=== PATIENT | male | born 1950 ===

== ENCOUNTER → 2023-08-21 06:35 | Day surgery (SDC) | payer MEDICARE, OTHER, SELFPAY | LOC: GI 06:35 | PROVIDERS: ATTENDING PHYSICIAN Internal Medicine Gastroenterology | DX: Z12.11 Encounter for screening for malignant neoplasm of colon (principal); D12.3 Benign neoplasm of transverse colon; K57.30 Diverticulosis of large intestine without perforation or abscess without bleeding; K62.1 Rectal polyp; Z86.010 Personal history of colon polyps; Z80.0 Family history of malignant neoplasm of digestive organs | CPT/HCPCS: 45385; 88305 ==

== ENCOUNTER 2024-11-25 01:56 | Emergency (ER) | payer MEDICARE, OTHER, SELFPAY ==
[2024-11-25 01:58] VITALS: BP 210/82
[2024-11-25 04:42] VITALS: BP 154/126
[2024-11-25 04:46] VITALS: BMI 25.6
[2024-11-25 05:00] VITALS: BP 160/71
[2024-11-25 06:00] VITALS: BP 152/77
--- NOTE | 2024-11-25 06:14 | ED.GENMED ---
History of Present Illness
General
Chief Complaint: Musculo-Skeletal Complaint
Source: patient
Exam Limitations: none
Time Seen by Provider: 11/25/24 06:12
Nursing documentation reviewed up to this point in time: agreed with
History of Present Illness
History of Present Illness:
Patient is a 74 old male with history of PVCs followed by mapping specialist in [place], [place] who presents to the ER for evaluation. Patient reports a week ago he fell walking down a step into his living room and missed the step. He landed on
his left side on the rug. He reports pain was improving but over the past several days has had increasing left anterior lower rib pain. He complained of increased pain with deep breath which was worsening which is what prompted him to come to the
ER. He however did not take anything for pain. He is not on blood thinners. He denies any other injuries. He denies any abdominal pain nausea vomiting back pain
Phy Exam
General Physical Exam
General Presentation: no apparent distress
General age: appears stated age
General Skin: warm and dry
General Habitus: normal
General Mental: alert
General Hydration: appears well hydrated
Cardiovascular Exam
Cardiovascular Exam: regular rate/rhythm, no murmur and normal peripheral pulses
Pulmonary Exam
Pulmonary Exam: lungs clear, no respiratory distress and other (Normal inspection of chest tender to the anterior left lower rib no crepitus ecchymosis or abrasion noted)
Gastrointestinal Exam
Gastrointestinal Exam: soft and other (No abdominal tenderness)
Neurological Exam
Neurological Exam: alert and oriented x3
Musculoskeletal Exam
Musculoskeletal Exam: full ROM
Skin Exam
Skin Exam: normal color and warm/dry
Psychiatric Exam
Psychiatric Exam: normal mood/affect
Course
Orders/Labs/Results
Orders:
Orders
11/25/24 02:01
ECG [Electrocardiogram (*1)] Urgent
Reason for Study: Shortness of Breath
11/25/24 02:02
EKG- Treatment ONCE
Ribs, Left 3 View W/PA Chest CR [CR Ribs-left 3 Vw W/pa Chest] Urgent
Comment:
Reason For Exam: FALL
11/25/24 06:26
Acetaminophen [Tylenol] 650 mg PO NOW STA
Ketorolac [Toradol] 30 mg IM NOW STA
Lidocaine [Lidocaine 4% Patch] 1 patch TOPICAL NOW STA
Apply Lidocaine patch(s) to:: left anterior lower rib
11/25/24 08:05
CT Chest W/o Iv Contrast Urgent
Comment:
Reason For Exam: pain anterior rib
Vital Signs
Initial and Last Documented VS:
Initial Vital Signs
Temp Pulse Resp BP Pulse Ox
98.0 F 64 18 210/82 98
11/25/24 01:58 11/25/24 01:58 11/25/24 01:58 11/25/24 01:58 11/25/24 01:58
Last Documented Vital Signs
Temp Pulse Resp BP Pulse Ox
98.0 F 64 18 152/77 98
11/25/24 01:58 11/25/24 04:46 11/25/24 04:46 11/25/24 06:00 11/25/24 08:04
MDM/Problems Addressed
Differential Diagnosis Includes:
Not not limited to chest wall contusion, rib contusion fracture
MDM/Problems Addressed:
No obvious fractures on chest x-ray or CT. Patient fell last week was improving and then sneezed multiple times yesterday because increasing pain. Likely more of a contusion type injury. Will still discharge with same supportive treatment as if
it was a fracture, deep breathing exercises Motrin Tylenol etc.
*Radiology
Radiology exam reviewed: radiology read reviewed
*Pulse Oximetry
SaO2: 98
Oxygen Mode of Delivery: Room air
Patient hypoxic: no
*Critical Care Note
Total Time (30-74mins, 75-104mins- exclusive of procedures): Not Applicable
ED Attending Note
-
Portions of this chart may have been created with voice recognition software.� Occasional wrong word or��sound alike� substitutions may have occurred due to the inherent limitations of voice recognition software.
Discharge Plan
Departure
Patient Disposition: Home (Routine Discharge)
Date of Disposition: 11/25/24
Time of Disposition: 09:40
Patient with high blood pressure during this ER visit?: Yes
Condition: Fair
Covid-19: Not Applicable
Discharge Problem:
Contusion of rib
Instructions: Rib fracture or bruised rib - ED discharge instructions
Referrals:
Adam Wolf DO [Family Provider, Family Practice]
Activity Restrictions/Additional Instructions:
As discussed ice the affected areas for 20 minutes at a time several times a day. You may alternate between ibuprofen and Tylenol. Do deep breathing exercises every hour. Closely follow-up with family doctor in the next several days.
Return if any worsening of symptoms.
Interventions
Interventions:
*Risk Screen - Suicide Last Done: 11/25/24 01:58
*General Assessment Last Done: 11/25/24 10:38
*Neglect/Abuse Screening Last Done: 11/25/24 01:58
*ED- Fall Risk Assessment Last Done: 11/25/24 10:38
*ED COVID-19 Vaccine History Last Done: 11/25/24 10:38
*Nursing Disposition Last Done: 11/25/24 10:37
ED-Musculoskeletal Assessment Last Done: 11/25/24 04:48
Discharge Date and Time
Discharge Date/Time: 11/25/24 10:39
Print Language: [id number]
[2024-11-25] MEDS: TYLENOL 650 MG PO (06:39)
[2024-11-25] MEDS: LIDOCAINE 4% PATCH 1 PATCH TOPICAL (06:41)
[2024-11-25] MEDS: TORADOL 30 MG IM (06:41)
== END 2024-11-25 10:39 | disposition home or self-care (01) ==
LOC: EMR 01:56
PROVIDERS: EMERGENCY PHYSICIAN Student in an Organized Health Care Education/Training Program; FAMILY PHYSICIAN Family Medicine
DX: S20.219A Contusion of unspecified front wall of thorax, initial encounter (principal); X58.XXXA Exposure to other specified factors, initial encounter; I25.10 Atherosclerotic heart disease of native coronary artery without angina pectoris; Z86.79 Personal history of other diseases of the circulatory system
CPT/HCPCS: 99284; 96372; 71101; 71250; 93005